=== PATIENT | female | born 2000 | race Caucasian/White ===

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

== ENCOUNTER → 2018-02-10 | Outpatient (CLI) | payer OTHER | END | disposition home or self-care (01) | LOC: C.LABSPEC 16:03 | PROVIDERS: ATTEND Obstetrics & Gynecology | DX: Z34.81 Encounter for supervision of other normal pregnancy, first trimester (principal) ==

== ENCOUNTER → 2018-02-12 | Outpatient (CLI) | payer OTHER ==
[2018-02-12 15:12] LABS: BASO % 0.1 %; BASO ABS # 0.01 K/uL (0-0.2); EOS % 1.2 %; EOS ABS # 0.13 K/uL (0-0.5); HEMATOCRIT 41.2 % (37-47); HEMOGLOBIN 13.9 g/dL (12.0-16.0); IG# 0.04 K/uL (0.00-0.02); LYMPH % 21.2 %; LYMPH ABS # 2.38 K/uL (1.2-3.4); MEAN CELL VOLUME 86.4 fL (80-100); MEAN CORPUSCULAR HEMOGLOBIN 29.1 pg (25-34); MEAN CORPUSCULAR HGB CONC 33.7 g/dl (32-36); MEAN PLATELET VOLUME 10.2 fL (7.4-10.4); MONO % 6.6 %; MONO ABS # 0.74 K/uL (0.11-0.59); NEUT % 70.5 %; NEUT ABS # 7.93 K/uL (1.4-6.5); PLATELET COUNT 244 K/uL (130-400); RED CELL DISTRIBUTION WIDTH CV 14.3 % (11.5-14.5); RED CELL DISTRIBUTION WIDTH SD 45.4 fL (36.4-46.3); WHITE BLOOD COUNT 11.23 K/uL (4.8-10.8)
== END | disposition home or self-care (01) ==
LOC: C.LAB1850 14:04
PROVIDERS: ATTEND Obstetrics & Gynecology
DX: Z34.81 Encounter for supervision of other normal pregnancy, first trimester (principal)

== ENCOUNTER → 2018-03-12 | Outpatient (CLI) | payer OTHER | END | disposition home or self-care (01) | LOC: C.LABSPEC 15:52 | PROVIDERS: ATTEND Obstetrics & Gynecology | DX: N76.2 Acute vulvitis (principal) ==

== ENCOUNTER 2018-09-20 23:53 | Inpatient (IN) ==
[2018-09-20] MEDS ORDERED: OXYTOCIN 30 UNITS/500 ML BAG IV PRN (23:58)
[2018-09-20] MEDS ORDERED: LACTATED RINGER'S 1,000 ML IV PRN (23:58)
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
[2018-09-21 00:18] LABS: Hemoglobin 11.6 g/dL (12.0-16.0); Mean Corpuscular Volume 91.6 fL (80-100); Mean Platelet Volume 10.4 fL (7.4-10.4); Platelet Count 252 K/uL (130-400); RDW Coefficient of Variation 14.2 % (11.5-14.5); RDW Standard Deviation 47.5 fL (36.4-46.3); Red Blood Count 3.93 M/uL (4.2-5.4); White Blood Count 13.93 K/uL (4.8-10.8)
[2018-09-21 00:31] LABS: Mean Corpuscular Hgb Conc 32.2 g/dL (32-36)
[2018-09-21] MEDS: LACTATED RINGER'S 1,000 ML IV SCH ×2 (01:15→06:10)
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
[2018-09-21] MEDS ORDERED: NALBUPHINE HCL INJ 10 MG/ML AMP IV PRN (01:20)
[2018-09-21] MEDS ORDERED: ePHEDrine sulfate 50 MG/ML AMP IV PRN (01:20)
[2018-09-21] MEDS ORDERED: NALOXONE HCL 0.4 MG/1 ML VIAL/CARP IV PRN (01:20)
[2018-09-21] MEDS ORDERED: BUPIVACAINE 0.25% 30 ML VIAL ONE (01:20)
[2018-09-21] MEDS ORDERED: fentaNYL 2MCG/ML ROPIV 1.25MG/ML 100 ML BAG EPI PRN (01:20)
[2018-09-21] MEDS ORDERED: ePHEDrine sulfate 50 MG/ML AMP ONE (01:20)
[2018-09-21] MEDS ORDERED: ONDANSETRON INJ 2 MG/ML 2 ML VIAL IV PRN (01:20)
[2018-09-21] MEDS ORDERED: NALOXONE HCL 1 MG in SODIUM CHLORIDE 0.9% 1000ML 1,000 ML IV PRN (01:20)
[2018-09-21] MEDS ORDERED: DiphenhydrAMINE HCL 50 MG/ML VIAL IV PRN (01:20)
[2018-09-21] MEDS ORDERED: LACTATED RINGER'S 1,000 ML IV PRN (01:20)
[2018-09-21] MEDS ORDERED: fentaNYL citrate 100 MCG/2 ML VIAL ONE (01:21)
[2018-09-21] MEDS ORDERED: fentaNYL 2MCG/ML ROPIV 1.25MG/ML 100 ML BAG EPI ONE (01:21)
--- NOTE | 2018-09-21 07:12 | Anesthesia Procedure Note ---
Date of Service September 21, 2018 Anesthesia Post Epidural Note Vital Signs Vital Signs: Temp Pulse Resp BP Pulse Ox 36.7 C 98 H 20 109/76 97 09/21/18 03:24 09/21/18 06:57 09/21/18 00:20 09/21/18 06:57 09/21/18 06:47 Pain Intensity Abdomen: Pain Intensity: 0 Notes Mental Status: alert / awake / arousable and participated in evaluation Nausea / Vomiting: adequately controlled Pain: adequately controlled Airway Patency, RR, SpO2: stable & adequate BP & HR: stable & adequate Hydration State: stable & adequate Neuraxial Anesthesia: was administered and sensory block is resolving Anesthetic Complications: no major complications apparent and Pt Satisfied with anesthetic care Epidural: Removed without complications and With tip intact
[2018-09-21] MEDS ORDERED: HYDROCORTISONE ACETATE 25 MG SUPP PR PRN (07:16)
[2018-09-21] MEDS ORDERED: OXYTOCIN 30 UNITS/500 ML BAG IV PRN (07:16)
[2018-09-21] MEDS ORDERED: DIPHTHERIA/TETANUS/PERTUSSIS 0.5 ML SYR/VIAL IM ONE (07:16)
[2018-09-21] MEDS ORDERED: BENZOCAINE 20% AER SPR 82.5 GM CAN EXT PRN (07:16)
[2018-09-21] MEDS ORDERED: BISACODYL 10 MG SUPP PR PRN (07:16)
[2018-09-21] MEDS ORDERED: SUPERCREAM 0.870% 15 GM JAR EXT PRN (07:16)
[2018-09-21] MEDS: ACETAMINOPHEN 325 MG TAB PO PRN ×2 (07:37→20:36)
--- NOTE | 2018-09-21 08:26 | Delivery Summary ---
DATE OF OPERATION: 09/21/2018 PROCEDURE: Vaginal after section. SURGEON: Al Osman MD PREOPERATIVE DIAGNOSES: 1. Single intrauterine at 39 weeks 1 day gestational age. 2. Prior history of one low transverse section. 3. Spontaneous rupture of membranes. POSTOPERATIVE DIAGNOSES: 1. Single intrauterine at 39 weeks 1 day gestational age. 2. Prior history of one low transverse section. 3. Spontaneous rupture of membranes. 4. Delivered. ESTIMATED BLOOD LOSS: 200 mL. DRAINS: None. FLUIDS: Continuous lactated ringer. URINE OUTPUT: Not measured. INDICATIONS: Ms. Ruiz is a 18-year-old G2, P1-0-0-1 at 39 weeks 1 day gestational age. The patient was admitted for spontaneous rupture of membranes. Of note, the patient does have a history of 1 prior low transverse section in June of 2017. Management options were discussed with [place] including a trial of labor after versus a repeat section. The patient opted to proceed with a trial of labor after . The risks of a trial of labor were discussed including the risk of uterine rupture, including the fact that this would be an increased risk of her baseline being this was a short interval . In addition, we discussed the success rate based on her history and the patient opted to continue to proceed with trial of labor after . At presentation, the patient was initially found to be 3 cm dilated, 80% effaced, -2 station and progressed on Augmentin, but did receive an epidural for anesthesia. COMPLICATIONS: None. FINDINGS: Viable male with weight pending and Apgars of 8 and 9 at 1 and 5 minutes respectively. DESCRIPTION OF PROCEDURE: The patient progressed to 10 cm dilated, 100% effaced positive 2-3 station, pushed over intact perineum with epidural anesthesia and delivered a viable male infant, weight and Apgars as noted above. The head of the delivered in SAURABH position, rest into to right transverse. No nuchal cord was noted. There was noted to be presenting compound hand which was posterior, which was delivered with internal rotation. The anterior shoulder followed without difficulty and the remainder of the body was delivered and was noted to be vigorous soon after delivery. The was delivered to the maternal abdomen. A 1-minute delayed cord clamping was initiated after which the cord was double clamped and cut. The was noted to continue to be vigorous. Cord blood was then obtained. Attention was then turned to delivery of the placenta which was delivered intact with 2-vessel cord with gentle cord traction. Inspection of perineum, cervix and vagina were performed and there was noted to be no lacerations. Sponge and instrument counts were correct at the completion of the case. I attest to the content of the Intraoperative Record and any orders documented therein. Any exception s are noted below.
[2018-09-21] MEDS: DOCUSATE SODIUM 100 MG CAP PO SCH ×2 (08:49→20:36)
[2018-09-21] MEDS: PRENATAL VITAMIN 1 TAB PO SCH (08:49)
[2018-09-21] MEDS: IBUPROFEN 600 MG TAB PO PRN ×2 (15:16→19:55)
--- NOTE | 2018-09-22 06:42 | Obstetrical Progress Note ---
Date of Service September 22, 2018 Assessment & Plan (1) Status post vaginal delivery: Patient is a 18 year old PPD 1 s/p -Vital signs WNL bp 116/68 T36.7, -No si/sx of anemia. -Pt is doing clinically well -Continue to encourage ambulation as tolerated, Monitor and control pain with m otrin prn, Continue diet as tolerated. -Continue to support and encourage breast feeding -Routine care -Pt was very tired this morning so I deferred discharge discussion. Given that pt delivered around 7:30 am yesterday if she is feeling well and meeting milestones, consider discharge this afternoon Supervising Physician Co-Signing Physician Notes Patient is PPD1 from . She reports that she wants to go home today. Will place discharge. Subjective PT sleeping and very tired this morning. Reports not sleeping well otherwise did well overnight. Patient is tolerating her diet, ambulating, passing gas, voiding, and small bm. Reports moderate lochia. Denies H/A, chest pain, palpitations and uti syx. No concerns at this time pain is well controlled Physical Exam Vital Signs (Past 24 Hours): Last Vital Signs Temp 36.7 C 09/22/18 03:30 Pulse 83 09/22/18 03:30 Resp 18 09/22/18 03:30 BP 116/68 09/22/18 03:30 Pulse Ox 100 09/21/18 20:00 Constitutional: WD/WN, vitals as above Eyes: normal visual zamora by confrontation Respiratory: normal respiratory effort, lungs clear to auscultation Cardiovascular: RRR, no murmur, no edema Extremities: no calf tenderness Gastrointestinal (Abdomen): normal bowel sounds, soft, nontender, no hepatosplenomegaly (Uterus firm and below umbilicus ) Skin: no rashes, warm and dry Results & Data Medications Administered Current Inpatient Medications Acetaminophen (Tylenol) 650 mg PO Q6H PRN PRN Reason: Pain/RIVAS/Fever Stop: 10/21/18 07:15 Last Admin: 09/21/18 20:36 Dose: 650 mg Documented by: Benzocaine (Dermoplast Pain Relieving [place]) 1 appln EXT PRN PRN PRN Reason: Perineal Discomfort Stop: 10/21/18 07:15 Bisacodyl (Dulcolax) 5 mg PO 1999 LILI Stop: 09/22/18 20:01 Bisacodyl (Dulcolax) 10 mg GA DAILY PRN PRN Reason: No BM on 2nd post- day Stop: 10/21/18 07:15 Cocaine HCl (Supercream 0.870%) 1 gm EXT BID PRN PRN Reason: Hemorrhoidal Inflammation Stop: 10/05/18 07:15 Docusate Sodium (Colace) 100 mg PO BID [facility] Stop: 10/21/18 08:59 Last Admin: 09/21/18 20:36 Dose: 100 mg Documented by: Hydrocortisone (Anusol Hc) 25 mg GA BID PRN PRN Reason: Hemorrhoidal Inflammation Stop: 10/21/18 07:15 Lactated Ringer's (Lr) 1,000 mls @ 125 mls/hr IV .Q8H [facility] Stop: 09/22/18 23:44 Last Infusion: 09/21/18 09:06 Dose: 0 mls/hr Documented by: Lactated Ringer's (Lr) 1,000 mls @ 999 mls/hr IV .Q1H1M PRN PRN Reason: (Pre-Anesthesia) Stop: 10/20/18 23:57 Last Infusion: 09/21/18 05:40 Dose: Infused Documented by: Oxytocin (Pitocin) 30 units in 500 mls @ 333.333 mls/hr IV .Q1H30M PRN; Prot ocol PRN Reason: Bleeding Control Stop: 10/20/18 23:57 Last Admin: 09/21/18 06:45 Dose: 59.94 units/hr, 999 mls/hr Documented by: Oxytocin (Pitocin) 30 units in 500 mls @ 333.333 mls/hr IV .Q1H30M PRN; Protocol PRN Reason: BLEEDING CONTROL Stop: 10/21/18 07:15 Ibuprofen (Motrin) 600 mg PO Q4H PRN PRN Reason: Pain/RIVAS/Cramping/Fever Stop: 10/21/18 07:15 Last Admin: 09/22/18 00:00 Dose: 600 mg Documented by: Prenat Multivit/[place]/Iron/Folic Ac ( Vitamin) 1 tab PO QAM [facility] Stop: 10/21/18 08:59 Last Admin: 09/21/18 08:49 Dose: 1 tab Documented by: Resident Activity Tracking Resident Involvement: Resident Care Provided Care Provided: Adult Hospital Medicine
[2018-09-22] MEDS: IBUPROFEN 600 MG TAB PO PRN ×4 (07:10→18:40)
[2018-09-22] MEDS: DOCUSATE SODIUM 100 MG CAP PO SCH ×2 (07:15→20:48)
[2018-09-22] MEDS: PRENATAL VITAMIN 1 TAB PO SCH (07:15)
[2018-09-22 08:09] LABS: Hematocrit (blood only) 33.1 % (37-47); Hemoglobin 10.7 g/dL (12.0-16.0); Mean Corpuscular Hgb Conc 32.3 g/dL (32-36); Mean Corpuscular Volume 91.7 fL (80-100); Mean Platelet Volume 10.1 fL (7.4-10.4); Platelet Count 157 K/uL (130-400); RDW Coefficient of Variation 14.3 % (11.5-14.5); RDW Standard Deviation 47.6 fL (36.4-46.3); Red Blood Count 3.61 M/uL (4.2-5.4); White Blood Count 13.25 K/uL (4.8-10.8)
[2018-09-22] MEDS ORDERED: SERTRALINE HCL 50 MG TABLET PO ONE (13:04)
[2018-09-22] MEDS ORDERED: BISACODYL 5 MG TABEC PO SCH (20:00)
[2018-09-23] MEDS: IBUPROFEN 600 MG TAB PO PRN ×2 (05:08→08:56)
[2018-09-23 06:21] LABS: Hemoglobin 10.6 g/dL (12.0-16.0)
--- NOTE | 2018-09-23 07:46 | Obstetrical Progress Note ---
Date of Service September 23, 2018 Assessment & Plan (1) Status post vaginal delivery: Patient is a 18 year old PPD 1 s/p -Vital signs WNL bp 116/68 T36.7, -Hemoglobin 11.6->10.7->10.6 . no si/sx of anemia. -Pt is doing clinically well -Continue to encourage ambulation as tolerated, Monitor and control pain with motrin prn, Continue diet as tolerated. -Continue to support and encourage breast feeding -Counseled patient on discharge instructions including Vaginal bleeding, fevers, followup, lifting restrictions, breast feeding, vitamins, and nothing in the vagina for 6 weeks. Pt was agreeable -Plan for d/c today Supervising Physician Co-Signing Physician Notes Resident Physician Supervision Note: I interviewed and examined the patient. Discussed with Dr. Jewel Garner and agree with findings and plan as documented in the note. Any exceptions or clarifications are listed here: [None] Documented By: Joaquina Knight MD, FACOG Subjective PT sleeping with dad sllepping across the room on the couch bed. No acute events overnight. Patient is tolerating her diet, ambulating, passing gas, voiding, and stooling appropriately. Reports decreasing lochia. Continues to deny H/A, chest pain, palpitations and uti syx. No concerns at this time pain is well controlled Physical Exam Vital Signs (Past 24 Hours): Last Vital Signs Temp 36.9 C 09/22/18 23:55 Pulse 86 09/22/18 23:55 Resp 18 09/22/18 23:55 BP 118/73 09/22/18 23:55 Pulse Ox 98 09/22/18 16:15 Constitutional: WD/WN, vitals as above Eyes: normal visual zamora by confrontation Respiratory: normal respiratory effort, lungs clear to auscultation Cardiovascular: RRR, no murmur, no edema Extremities: no calf tenderness Gastrointestinal (Abdomen): normal bowel sounds, soft, nontender, no hepatosplenomegaly (Uterus firm and below umbilicus ) Skin: no rashes, warm and dry Results & Data Laboratory Results 09/23/18 09/22/18 Range/Units 06:01 07:52 WBC 13.25 H (4.8-10.8) K/uL RBC 3.61 L (4.2-5.4) M/uL Hgb 10.6 L 10.7 L (12.0-16.0) g/dL Hct 33.0 L 33.1 L (37-47) % MCV 91.7 (80-100) fL MCH 29.6 (25-34) pg MCHC 32.3 (32-36) g/dL RDW Std Deviation 47.6 H (36.4-46.3) fL RDW Coeff of Corin 14.3 (11.5-14.5) % Plt Count 157 (130-400) K/uL MPV 10.1 (7.4-10.4) fL Medications Administered Current Inpatient Medications Acetaminophen (Tylenol) 650 mg PO Q6H PRN PRN Reason: Pain/RIVAS/Fever Stop: 10/21/18 07:15 Last Admin: 09/21/18 20:36 Dose: 650 mg Documented by: Benzocaine (Dermoplast Pain Relieving [place]) 1 appln EXT PRN PRN PRN Reason: Perineal Discomfort Stop: 10/21/18 07:15 Bisacodyl (Dulcolax) 10 mg NC DAILY PRN PRN Reason: No BM on 2nd post- day Stop: 10/21/18 07:15 Cocaine HCl (Supercream 0.870%) 1 gm EXT BID PRN PRN Reason: Hemorrhoidal Inflammation Stop: 10/05/18 07:15 Last Admin: 09/22/18 17:33 Dose: 1 gm Documented by: Docusate Sodium (Colace) 100 mg PO BID LILI Stop: 10/21/18 08:59 Last Admin: 09/22/18 20:48 Dose: 100 mg Documented by: Hydrocortisone (Anusol Hc) 25 mg NC BID PRN PRN Reason: Hemorrhoidal Inflammation Stop: 10/21/18 07:15 Lactated Ringer's (Lr) 1,000 mls @ 999 mls/hr IV .Q1H1M PRN PRN Reason: (Pre-Anesthesia) Stop: 10/20/18 23:57 Last Infusion: 09/21/18 05:40 Dose: Infused Documented by: Oxytocin (Pitocin) 30 units in 500 mls @ 333.333 mls/hr IV .Q1H30M PRN; Protoco l PRN Reason: Bleeding Control Stop: 10/20/18 23:57 Last Admin: 09/21/18 06:45 Dose: 59.94 units/hr, 999 mls/hr Documented by: Oxytocin (Pitocin) 30 units in 500 mls @ 333.333 mls/hr IV .Q1H30M PRN; Protocol PRN Reason: BLEEDING CONTROL Stop: 10/21/18 07:15 Ibuprofen (Motrin) 600 mg PO Q4H PRN PRN Reason: Pain/RIVAS/Cramping/Fever Stop: 10/21/18 07:15 Last Admin: 09/23/18 05:08 Dose: 600 mg Documented by: Prenat Multivit/[place]/Iron/Folic Ac ( Vitamin) 1 tab PO QAM LILI Stop: 10/21/18 08:59 Last Admin: 09/22/18 07:15 Dose: 1 tab Documented by: Sertraline HCl (Zoloft) 25 mg PO QAM ONE Stop: 09/23/18 09:01 Resident Activity Tracking Resident Involvement: Resident Care Provided Care Provided: Adult Hospital Medicine
[2018-09-23] MEDS: PRENATAL VITAMIN 1 TAB PO SCH (08:55)
[2018-09-23] MEDS: DOCUSATE SODIUM 100 MG CAP PO SCH (08:56)
[2018-09-23] MEDS ORDERED: SERTRALINE HCL 50 MG TABLET PO ONE (09:00)
== END 2018-09-23 12:00 | disposition home or self-care (01) | DRG 807 ==
LOC: OPB 23:53 → 4S1 23:56 → 4S2 09-21 09:27